=== PATIENT | male | born 1990 | race Caucasian/White ===

== ENCOUNTER 2016-11-05 12:24 | Emergency (ER) | payer OTHER, BC ==
[~2016-11-05] VITALS: Ht 188 cm; Wt 117.9 kg
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
--- NOTE | 2016-11-05 13:26 | Diagnostic Imaging Report ---
INDICATION: Left knee pain. AP, oblique, and lateral views of the left knee are obtained. No fracture or acute bony abnormality is seen. There is a joint effusion in the suprapatellar recess. There is no other abnormal finding. IMPRESSION: Evidence of joint effusion in the suprapatellar recess. No acute fracture or joint space narrowing. Dictated by: Dictated on workstation # [id number]
[2016-11-05] MEDS ORDERED: TRAM50TA2 PO (13:42)
[2016-11-05 14:08] VITALS: BP 135/81
== END 2016-11-05 14:07 | disposition home or self-care (01) ==
LOC: ER 12:28
DX: S83.92XA Sprain of unspecified site of left knee, initial encounter (principal); M25.462 Effusion, left knee; V09.1XXA Pedestrian injured in unspecified nontraffic accident, initial encounter; Y99.8 Other external cause status
CPT/HCPCS: 73562; 99283